=== PATIENT | female | born 1990 | race Caucasian/White ===

== ENCOUNTER 2018-02-18 10:50 | Inpatient (IN) | payer OTHER ==
[~2018-02-18] VITALS: Ht 175.3 cm; Wt 130.0 kg
[2018-02-19] MEDS ORDERED: OXYTOCIN 30U/ 0.9% NaCL 500ML 500 ML IV PRN (06:07)
[2018-02-19] MEDS ORDERED: D5%-LACTATED RINGERS 1,000 ML IV SCH (06:07)
[2018-02-19] MEDS ORDERED: OXYTOCIN 30U/ 0.9% NaCL 500ML 500 ML IV ONE (06:07)
[2018-02-19] MEDS: LACTATED RINGERS 1,000 ML IV SCH ×2 (06:25→12:29)
[2018-02-19] MEDS ORDERED: NEWBORN KIT ONE (06:26)
[2018-02-19] MEDS ORDERED: OXYTOCIN 30U/ 0.9% NaCL 500ML 500 ML ONE (06:26)
[2018-02-19] MEDS ORDERED: MISOPROSTOL 25 MCG TABLET ONE ×2 (06:26→11:04)
[2018-02-19] MEDS ORDERED: MISOPROSTOL 25 MCG TABLET VG PRN (06:30)
[2018-02-19] MEDS ORDERED: ONDANSETRON 2MG/ML, 2ML IVPush PRN ×2 (06:30→16:30)
[2018-02-19] MEDS ORDERED: FENTANYL PF 100 MCG/2ML IV PRN ×2 (06:30→16:30)
[2018-02-19] MEDS ORDERED: VANCOMYCIN PMX 1GM/200ML 200 ML IVPB SCH (06:30)
[2018-02-19] MEDS ORDERED: TERBUTALINE 1 MG/ML, 1ML IVPush PRN (06:30)
[2018-02-19] MEDS ORDERED: FENTANYL PF 100 MCG/2ML IVPush PRN (06:30)
[2018-02-19] MEDS ORDERED: CALCIUM CARBONATE 500 MG TAB.CHEW PO PRN (06:30)
[2018-02-19 06:36] LABS: BASOPHILS # (AUTO) 0.14 x10^3/uL (0-0.1); BASOPHILS % (AUTO) 1 % (0-1); EOSINOPHILS # (AUTO) 0.05 x10^3/uL (0-0.4); EOSINOPHILS % (AUTO) 0 % (1-7); LYMPHOCYTES % (AUTO) 14 % (22-44); MD NO; MEAN CORPUSCULAR HEMOGLOBIN 31.3 pg (27.0-34.8); MEAN CORPUSCULAR HGB CONC 33.9 g/dL (32.4-35.8); MEAN CORPUSCULAR VOLUME 92.6 fL (80-100); MEAN PLATELET VOLUME 9.2 fL (7.4-10.4); MONOCYTES % (AUTO) 7 % (2-9); NEUTROPHILS # (AUTO) 9.43 x10^3/uL (1.8-6.8); NEUTROPHILS % (AUTO) 78 % (42-75); PLATELET COUNT 277 x10^3/uL (130-400); RED BLOOD COUNT 3.91 x10^6/uL (3.82-5.3); RED CELL DISTRIBUTION WIDTH 15.1 % (9.6-15.2)
[2018-02-19] MEDS ORDERED: FENTANYL PF 100 MCG/2ML ONE ×3 (12:18→14:50)
[2018-02-19] MEDS ORDERED: TERBUTALINE 1 MG/ML, 1ML ONE (12:32)
[2018-02-19] MEDS ORDERED: FENTANYL/BUPIV./NS/PF 250 ML EPIDCONT SCH ×2 (12:51→16:10)
[2018-02-19] MEDS ORDERED: PANTOPRAZOLE 20MG TABLET PO ONE (13:00)
[2018-02-19] MEDS ORDERED: LACTATED RINGERS 1,000 ML IVBOLUS PRN ×2 (13:00→16:30)
[2018-02-19] MEDS ORDERED: BUPIVACAINE 0.25% ONE (13:11)
[2018-02-19] MEDS ORDERED: CEFAZOLIN 1,000 MG ONE (14:42)
[2018-02-19] MEDS ORDERED: DEXAMETHASONE 4 MG/ML, 1ML ONE (14:42)
[2018-02-19] MEDS ORDERED: SUCCINYLCHOLINE 20 MG/ML, 10ML ONE (14:42)
[2018-02-19] MEDS ORDERED: PHENYLEPHRINE 10 MG/ML ONE (14:42)
[2018-02-19] MEDS ORDERED: ONDANSETRON 2MG/ML, 2ML ONE (14:42)
[2018-02-19] MEDS ORDERED: PROPOFOL 10 MG/ML, 20ML ONE (14:42)
[2018-02-19] MEDS ORDERED: OXYTOCIN 10 UNITS/ML, 1ML ONE (14:42)
[2018-02-19] MEDS ORDERED: KETOROLAC 30 MG/1 ML ONE (14:42)
[2018-02-19] MEDS ORDERED: EPHEDRINE 50 MG/ML, 1ML ONE (14:42)
[2018-02-19] MEDS ORDERED: LACTATED RINGERS 1,000 ML IV SCH ×3 (14:47→16:10)
[2018-02-19] MEDS ORDERED: CLINDAMYCIN PMX 900MG/50ML 50 ML ONE (14:50)
[2018-02-19] MEDS ORDERED: ACETAMINOPHEN 325 MG TABLET PO PRN ×2 (15:00)
[2018-02-19] MEDS ORDERED: CARBOPROST TROMETHAMINE 250 MCG/ML, 1ML IM PRN (15:00)
[2018-02-19] MEDS ORDERED: ONDANSETRON 2MG/ML, 2ML IV PRN (15:00)
[2018-02-19] MEDS ORDERED: MISOPROSTOL 200 MCG TABLET PR PRN (15:00)
[2018-02-19] MEDS ORDERED: METHYLERGONOVINE 0.2 MG/ML IM PRN (15:00)
[2018-02-19] MEDS ORDERED: SODIUM CITRATE/CITRIC ACID 30 ML UDC ONE (15:04)
[2018-02-19] MEDS ORDERED: HYDROcodone/APAP 7.5-325MG/15ML UDC PO PRN (16:30)
[2018-02-19] MEDS ORDERED: LABETALOL 5MG/ML, 20ML IV PRN (16:30)
[2018-02-19] MEDS ORDERED: NALOXONE 0.4 MG/ML, 1ML IVPush PRN (16:30)
[2018-02-19] MEDS ORDERED: MEPERIDINE/PF 25MG/0.5ML IVPush PRN (16:30)
[2018-02-19] MEDS ORDERED: EPHEDRINE 50 MG/ML, 1ML IVPush PRN ×2 (16:30)
[2018-02-19] MEDS ORDERED: OXYcodone 5 MG/5 ML ORAL.SOL UDC PO PRN (16:30)
[2018-02-19] MEDS ORDERED: hydrALAzine 20 MG/ML, 1ML IV PRN (16:30)
[2018-02-19] MEDS ORDERED: PROMETHAZINE 25 MG/ML, 1ML IV PRN (16:30)
[2018-02-19] MEDS ORDERED: HYDROmorphone 1 MG/ML, 1ML IV PRN (16:30)
[2018-02-19] MEDS ORDERED: ALBUTEROL SULFATE 2.5 MG/3 ML NPPB PRN (16:30)
[2018-02-19] MEDS: OXYTOCIN 30U/ 0.9% NaCL 500ML 500 ML IV SCH (17:03)
[2018-02-19] MEDS ORDERED: OXYcodone 5 MG/5 ML ORAL.SOL UDC ONE (17:12)
[2018-02-19 17:50] LABS: ALANINE AMINOTRANSFERASE 13 U/L (12-78); ALBUMIN 2.3 g/dL (3.4-5.0); ANION GAP 9 mmol/L (5-15); CALCIUM 9.3 mg/dL (8.5-10.1); CHLORIDE 107 mmol/L (98-107); CREATININE 0.86 mg/dL (0.55-1.02)
[2018-02-19 17:51] LABS: BILIRUBIN, DIRECT < 0.1 mg/dL (0.1-0.2)
[2018-02-19 17:52] LABS: ALKALINE PHOSPHATASE 95 U/L (45-117); BILIRUBIN,TOTAL 0.2 mg/dL (0.2-1.0); TOTAL PROTEIN 6.2 g/dL (6.4-8.2)
[2018-02-19 17:54] LABS: MEAN CORPUSCULAR HEMOGLOBIN 31.8 pg (27.0-34.8); MEAN CORPUSCULAR VOLUME 93.7 fL (80-100); MEAN PLATELET VOLUME 9.6 fL (7.4-10.4); PLATELET COUNT 272 x10^3/uL (130-400); RED BLOOD COUNT 3.78 x10^6/uL (3.82-5.3); RED CELL DISTRIBUTION WIDTH 15.1 % (9.6-15.2)
[2018-02-19 18:10] LABS: MICROSCOPIC INDICATED
[2018-02-19 18:15] VITALS: BP 114/85
[2018-02-19 18:18] LABS: BASOPHILS # (AUTO) 0.01 x10^3/uL (0-0.1); BASOPHILS % (AUTO) 0 % (0-1); EOSINOPHILS % (AUTO) 0 % (1-7); LYMPHOCYTES # (AUTO) 0.61 x10^3/uL (1-3.4); LYMPHOCYTES % (AUTO) 3 % (22-44); MD SCAN; MONOCYTES # (AUTO) 0.41 x10^3/uL (0.2-0.8); MONOCYTES % (AUTO) 2 % (2-9); NEUTROPHILS # (AUTO) 18.15 x10^3/uL (1.8-6.8); NEUTROPHILS % (AUTO) 95 % (42-75)
[2018-02-19 19:15] VITALS: BP 128/74
[2018-02-19 20:00] VITALS: BP 119/69
[2018-02-19] MEDS: OXYcodone/APAP 5/325MG TABLET PO PRN (20:11)
[2018-02-19] MEDS: KETOROLAC 30 MG/1 ML IV SCH (21:50)
[2018-02-20] MEDS: OXYcodone/APAP 5/325MG TABLET PO PRN ×5 (00:04→20:42)
[2018-02-20] MEDS: OXYTOCIN 30U/ 0.9% NaCL 500ML 500 ML IV SCH (00:47)
[2018-02-20 01:11] LABS: BASOPHILS # (AUTO) 0.03 x10^3/uL (0-0.1); BASOPHILS % (AUTO) 0 % (0-1); EOSINOPHILS % (AUTO) 0 % (1-7); LYMPHOCYTES # (AUTO) 1.05 x10^3/uL (1-3.4); LYMPHOCYTES % (AUTO) 6 % (22-44); MD NO; MEAN CORPUSCULAR HEMOGLOBIN 31.9 pg (27.0-34.8); MEAN CORPUSCULAR HGB CONC 34.4 g/dL (32.4-35.8); MEAN CORPUSCULAR VOLUME 92.7 fL (80-100); MONOCYTES # (AUTO) 0.57 x10^3/uL (0.2-0.8); MONOCYTES % (AUTO) 3 % (2-9); NEUTROPHILS # (AUTO) 16.07 x10^3/uL (1.8-6.8); NEUTROPHILS % (AUTO) 91 % (42-75); PLATELET COUNT 244 x10^3/uL (130-400); RED BLOOD COUNT 3.46 x10^6/uL (3.82-5.3); RED CELL DISTRIBUTION WIDTH 15.3 % (9.6-15.2)
[2018-02-20 01:30] VITALS: BP 111/65
[2018-02-20] MEDS: KETOROLAC 30 MG/1 ML IV SCH ×5 (03:30→20:46)
[2018-02-20 03:57] VITALS: BP 127/73
[2018-02-20 08:45] VITALS: BP 104/64
[2018-02-20] MEDS: PRENATAL VIT/IRON/FA 1 EACH TABLET PO SCH (09:00)
[2018-02-20 12:00] VITALS: BP 128/89
[2018-02-20 18:35] VITALS: BP 123/77
[2018-02-21] MEDS: OXYcodone/APAP 5/325MG TABLET PO PRN ×6 (02:22→20:59)
[2018-02-21] MEDS: KETOROLAC 30 MG/1 ML IV SCH (02:22)
[2018-02-21 08:00] VITALS: BP 116/74
[2018-02-21] MEDS ORDERED: IBUPROFEN 600 MG TABLET ONE (08:51)
[2018-02-21] MEDS: IBUPROFEN 600 MG TABLET PO PRN ×3 (08:52→20:59)
[2018-02-21] MEDS: PRENATAL VIT/IRON/FA 1 EACH TABLET PO SCH (08:52)
[2018-02-21] MEDS: DOCUSATE 100 MG CAPSULE PO PRN (08:53)
[2018-02-21] MEDS ORDERED: IBUPROFEN 600 MG TABLET PO PRN (09:00)
[2018-02-21 16:30] VITALS: BP 120/72
[2018-02-21 16:50] VITALS: BP 131/88
[2018-02-21 17:24] VITALS: BP 123/80
[2018-02-21 20:00] VITALS: BP 133/89
[2018-02-22] MEDS: OXYcodone/APAP 5/325MG TABLET PO PRN ×3 (01:55→11:57)
[2018-02-22 07:30] VITALS: BP 124/85
[2018-02-22] MEDS: DOCUSATE 100 MG CAPSULE PO PRN (08:22)
[2018-02-22] MEDS: IBUPROFEN 600 MG TABLET PO PRN (08:22)
[2018-02-22] MEDS: PRENATAL VIT/IRON/FA 1 EACH TABLET PO SCH (09:00)
[2018-02-22] MEDS ORDERED: OXYC-302 PO (11:41)
[2018-02-22] MEDS ORDERED: IBUP-1222 PO (11:42)
[2018-02-22] MEDS ORDERED: DOCU-131 PO (11:43)
== END 2018-02-22 12:25 | disposition home or self-care (01) | DRG 765 ==
LOC: LDIP 02-19 06:05 → 2NW 02-19 18:41
PROVIDERS: ADMIT Obstetrics & Gynecology; ATTEND Obstetrics & Gynecology
PROC: 10D00Z1 Extraction of Products of Conception, Low, Open Approach (ICD-10-PCS; principal; 2018-02-19)
DX: O99.824 Streptococcus B carrier state complicating childbirth (principal); Z68.41 Body mass index [BMI] 40.0-44.9, adult; E66.01 Morbid (severe) obesity due to excess calories; O76 Abnormality in fetal heart rate and rhythm complicating labor and delivery; O99.214 Obesity complicating childbirth; Z16.29 Resistance to other single specified antibiotic; Z37.0 Single live birth; Z3A.40 40 weeks gestation of pregnancy; Z87.410 Personal history of cervical dysplasia; Z88.0 Allergy status to penicillin; Z90.49 Acquired absence of other specified parts of digestive tract
CPT/HCPCS: 36415; 80053; 81001; 82248; 82570; 82803; 84156; 84550; 85025; 86850; 86900; J0690; J1100; J1885; J2405; J2704; J3010; J3370; J0330; J2370; J2590; J7120